=== PATIENT | male | born 1995 | race Caucasian/White ===

== ENCOUNTER 2018-05-05 15:24 | Emergency (ER) | payer SELFPAY ==
[2018-05-05] MEDS: KETOROLAC 60 MG INJ IM (17:11)
[2018-05-05] MEDS: HYDROCODONE/APAP (5/325) TAB PO (17:11)
== END 2018-05-05 18:09 | disposition home or self-care (01) ==
LOC: FTE 15:24
DX: S33.9XXA Sprain of unspecified parts of lumbar spine and pelvis, initial encounter (principal); X58.XXXA Exposure to other specified factors, initial encounter; Y92.9 Unspecified place or not applicable
CPT/HCPCS: 96372; 99284-25